=== PATIENT | male | born 2000 | race Caucasian/White ===

== ENCOUNTER 2022-09-13 07:52 | Outpatient (RCR) | payer BC, SELFPAY | END 2022-12-12 23:59 | disposition home or self-care (01) | LOC: ANHVASCINF 07:52 | PROVIDERS: PCP Family Medicine; Visit Provider Internal Medicine Endocrinology, Diabetes & Metabolism | DX: E27.40 Unspecified adrenocortical insufficiency (principal) | CPT/HCPCS: 36415; 82533; 96372; J0834 ==